=== PATIENT | male | born 1945 | race Caucasian/White ===

== ENCOUNTER 2019-09-29 10:15 | Observation (INO) | payer MEDICARE ==
[2019-09-29] MEDS ORDERED: NORMAL SALINE 1000 ML 1,000 ML IV ONE (10:34)
--- NOTE | 2019-09-29 10:40 | ER Document Report ---
ED General - General Chief Complaint: Breathing Difficulty Stated Complaint: BREATHING DIFFICULTY Time Seen by Provider: 09/29/19 10:22 Notes: 73-year-old male presents with "fluttering of heart" since 6 PM last night. Patient states his blood pressure was elevated and he was in A. fib. Patient had associated dyspnea. Patient was found to be in A. fib with RVR between 130- 160 with EMS and was given Cardizem 24 mg which decreased which the rate and patient was in the 90s to 110s. Patient is currently mildly hypotensive 95/70. Patient's heart rate currently in the 50s to 60s. Patient states he is feeling a "lot better." Only other complaint is cough which is ongoing for several weeks that patient states is improving. Patient has a history of A. fib and is currently on metoprolol for same, patient is anticoagulated with warfarin. Patient states his INR was checked proximally 3 weeks ago and was "fine." Patient's business services representative is Dr. Felix ([phone]). Pt's PCP is Rani Guy PA-C ([phone]). Patient denies any fever, chills, chest pain, abdominal pain, nausea, vomiting. - Related Data Allergies/Adverse Reactions: avocado Allergy (Verified 09/29/19 10:42) Past Medical History - Social History Smoking Status: Unknown if Ever Smoked Family History: None Review of Systems - Review of Systems Notes: Constitutional: Negative for fever. HENT: Negative for sore throat. Eyes: Negative for visual changes. Cardiovascular: Positive for heart fluttering. Negative for chest pain. Respiratory: Positive for shortness of breath. Gastrointestinal: Negative for abdominal pain, vomiting or diarrhea. Genitourinary: Negative for dysuria. Musculoskeletal: Negative for back pain. Skin: Negative for rash. Neurological: Negative for headaches, weakness or numbness. 10 point ROS negative except as marked above and in HPI. Physical Exam - Vital signs Vitals: Pulse Ox 97 09/29/19 10:18 - Notes Notes: GENERAL: Well-appearing, well-nourished and in no acute distress. HEAD: Atraumatic, normocephalic. EYES: Extraocular movements intact, sclera anicteric, conjunctiva are normal. NECK: Normal range of motion, supple without lymphadenopathy or JVD. LUNGS: Breath sounds clear to auscultation bilaterally and equal. No wheezes rales or rhonchi. HEART: Irregular rate and rhythm without murmurs, rubs or gallops. ABDOMEN: Soft, nontender. No guarding, no rebound. No masses appreciated. EXTREMITIES: Normal range of motion, no pitting or edema. No clubbing or cyanosis. NEUROLOGICAL: Cranial nerves II through XII grossly intact. Normal speech, normal gait. PSYCH: Normal mood, normal affect. SKIN: Warm, Dry, normal turgor, no rashes or lesions noted. Course - Re-evaluation Re-evalutation: 09/29/19 73-year-old male presents with dyspnea and A. fib with RVR. Patient was given Cardizem 24 mg IV by EMS which decreased patient's heart rate from 130-160 down to 90-110. Cardiac work-up initiated. Patient was hypotensive at 95/70 so 1 L bolus ordered. EKG shows A. fib at a rate of 59. 09/29/19 12:[address] Ryan. Pt to be admitted. 09/29/19 12:36 Spoke to Theodore Greenwood PA-C who accepted pt for admission. ANDRÉS Greenwood to come down to assess pt. - Vital Signs Vital signs: Temp Pulse Resp BP Pulse Ox 98.3 F 19 126/93 H 97 09/29/19 10:20 09/29/19 12:46 09/29/19 12:46 09/29/19 12:46 - Laboratory Result Diagrams: 09/29/19 10:28 09/29/19 10:28 Laboratory results interpreted by me: 09/29/19 09/29/19 09/29/19 10:28 10:28 10:28 RDW 14.1 H Plt Count 109 L PT 28.6 H APTT 38.3 H Glucose 175 H Discharge - Discharge Clinical Impression: Atrial fibrillation with RVR, Dyspnea Condition: Stable Disposition: ADMITTED INPATIENT Admitting Provider: Jennifer (Hospitalist) - Theodore Greenwood PA-C Unit Admitted: Telemetry
[2019-09-29 10:51] LABS: INTERNATIONAL RATION (INR) 2.63; PROTHROMBIN TIME 28.6 SEC (11.4-15.4)
[2019-09-29 10:52] LABS: PARTIAL THROMBOPLASTIN TIME 38.3 SEC (23.5-35.8)
[2019-09-29 10:57] LABS: ABSOLUTE BASOPHILS # (AUTO) 0.1 10^3/uL (0.0-0.2); ABSOLUTE EOSINOPHILS # (AUTO) 0.2 10^3/uL (0.0-0.6); ABSOLUTE LYMPHOCYTES (AUTO) 1.3 10^3/uL (0.5-4.7); ABSOLUTE MONOCYTES (AUTO) 0.7 10^3/uL (0.1-1.4); ABSOLUTE NEUT (AUTO) 4.4 10^3/uL (1.7-8.2); EOSINOPHILS % (AUTO) 2.8 % (0-6); HEMATOCRIT 47.8 % (37.9-51.0); HEMOGLOBIN 16.4 g/dL (13.5-17.0); LYMPHOCYTES % (AUTO) 19.7 % (13-45); MEAN CORPUSCULAR HEMOGLOBIN 32.2 pg (27.0-33.4); MEAN CORPUSCULAR HGB CONC 34.2 g/dL (32.0-36.0); MEAN CORPUSCULAR VOLUME 94 fl (80-97); MONOCYTES % (AUTO) 10.7 % (3-13); PLATELET COUNT 109 10^3/uL (150-450); RED BLOOD COUNT 5.08 10^6/uL (4.35-5.55); RED CELL DISTRIBUTION WIDTH 14.1 % (11.5-14.0); SEGMENTED NEUTROPHILS % (AUTO) 65.8 % (42-78); TOTAL CELLS COUNTED % (AUTO) 100 %; WHITE BLOOD COUNT 6.7 10^3/uL (4.0-10.5)
[2019-09-29 11:04] LABS: ALKALINE PHOSPHATASE 58 U/L (38-126); ANION GAP 11 (5-19); ASPARTATE AMINO TRANSFERASE 23 U/L (17-59); BILIRUBIN,DIRECT 0.1 mg/dL (0.0-0.4); BILIRUBIN,TOTAL 0.7 mg/dL (0.2-1.3); BLOOD UREA NITROGEN 15 mg/dL (7-20); CALCIUM 9.5 mg/dL (8.4-10.2); CARBON DIOXIDE 23 mmol/L (22-30); CHLORIDE 106 mmol/L (98-107); CREATINE KINASE 98 U/L (55-170); GLUCOSE 175 mg/dL (75-110); POTASSIUM 4.2 mmol/L (3.6-5.0); TOTAL PROTEIN 7.2 g/dL (6.3-8.2)
--- NOTE | 2019-09-29 11:15 | EKG REPORT ---
SEVERITY:- ABNORMAL ECG - ATRIAL FIBRILLATION, V-RATE 43-66 LEFT ANTERIOR FASCICULAR BLOCK LEFT VENTRICULAR HYPERTROPHY NONSPECIFIC T ABNORMALITIES, INFERIOR LEADS : Confirmed by: Kiera Hunter MD 29-Sep-2019 11:13:50
[2019-09-29 11:16] LABS: CREATINE KINASE MB 1.54 ng/mL (<4.55); TROPONIN I 0.024 ng/mL
--- NOTE | 2019-09-29 11:17 | RADIOLOGY REPORT (SQ) ---
EXAM DESCRIPTION: CHEST SINGLE VIEW COMPLETED DATE/TIME: 09/29/2019 11:07 am REASON FOR STUDY: chest pain COMPARISON: None. EXAM PARAMETERS: NUMBER OF VIEWS: One view. TECHNIQUE: Single frontal radiographic view of the chest acquired. RADIATION DOSE: NA LIMITATIONS: None. FINDINGS: LUNGS AND PLEURA: No opacities, masses or pneumothorax. No pleural effusion. MEDIASTINUM AND HILAR STRUCTURES: No masses. Contour normal. HEART AND VASCULAR STRUCTURES: Heart normal in size. Normal vasculature. BONES: No acute findings. HARDWARE: None in the chest. OTHER: No other significant finding. IMPRESSION: NO ACUTE RADIOGRAPHIC FINDING IN THE CHEST. TECHNICAL DOCUMENTATION: JOB ID: [id number] [employer]- All Rights Reserved Reading location - IP/workstation name: [email or web address]
[2019-09-29] MEDS ORDERED: ZOLPIDEM TARTRATE 5 MG TABLET PO PRN (13:14)
[2019-09-29] MEDS ORDERED: ACETAMINOPHEN 325 MG TABLET PO PRN (13:14)
[2019-09-29] MEDS ORDERED: MAGNESIUM HYDROXIDE SUSP 30 ML UDCUP PO PRN (13:14)
[2019-09-29] MEDS ORDERED: ONDANSETRON 4 MG TAB.RAPDIS PO PRN (13:14)
[2019-09-29] MEDS ORDERED: ONDANSETRON HCL INJ/PF 4 MG/2 ML SDV IV PRN (13:14)
[2019-09-29] MEDS ORDERED: HYDROCODONE/ACETAMINOPHEN 5-325 MG TABLET PO PRN (13:34)
--- NOTE | 2019-09-29 13:44 | PDOC H&P ---
History of Present Illness Admission Date/PCP: 09/29/2019 History of Present Illness: INÉS GILMAN is a 73 year old male who last night started getting chest palpitations and hypertension. Patient actually had his first episode of A. fib with RVR while living in [place] in April 2017. Patient states that last night and early this morning this is what it felt like. Patient complained mostly of shortness of breath. Patient came to the hospital because he thought he might be in atrial fib again. Last night his blood pressure was 170/100 this morning he was actually hypotensive at 90/60 patient states his normal pressures about 140/80. When EMS got to him this morning his heart rate was around 150 and he was given Cardizem bolus, 24 mg. She is heart rate is been in the 60s now since that bolus of Cardizem. In April 2017 patient underwent a procedure for his atrial fib, sounds to be some form of ablation.. Patient's only other medical problem appears to be BPH and hypertension. Patient is currently stable and will come into the hospital in observation status overnight to be monitored. Patient is currently taking Coumadin 2 mg at night and his INR is around 2.6. Patient's first troponin is normal. Patient will have 2 other troponins 6 hours apart. Past Medical History Cardiac Medical History: Reports: Atrial Fibrillation, Hyperlipidema, Hypertension Past Surgical History Past Surgical History: Reports: Cholecystectomy, Orthopedic Surgery - R arm surgery Social History Smoking Status: Unknown if Ever Smoked - Advance Directive Resuscitation Status: Full Code Family History Family History: None Parental Family History Reviewed: No Children Family History Reviewed: No Sibling(s) Family History Reviewed.: No Medication/Allergy Home Medications: Calcium Carbonate [Os-Chandler 500 mg Tablet (Oyster-Shell)] 500 mg PO QHS 09/29/19 Cholecalciferol (Vitamin D3) [Vitamin D3 1000 Unit Tablet] 1,000 unit PO QHS 09/29/19 Hydrocodone/Acetaminophen [[place] 5-325 Tablet] 1 each PO Q8HP PRN 09/29/19 Latanoprost [Xalatan 0.005% Oph Soln 2.5 ml] 1 drop OU QHS 09/29/19 Losartan Potassium [Cozaar 25 mg Tablet] 25 mg PO DAILY 09/29/19 Metoprolol Succinate [Toprol XL 100 mg Tablet] 100 mg PO DAILY 09/29/19 Multivitamin [Tab-A-Chintan (Multiple Vitamin) Tablet] 1 tab PO QHS 09/29/19 Tamsulosin HCl [Flomax 0.4 mg Cap.sr] 0.8 mg PO QHS 09/29/19 Timolol Maleate [Timoptic 0.25% Oph Soln 5 ml] 1 drop OS BID 09/29/19 Warfarin Sodium [Coumadin 2 mg Tablet] mg PO 09/29/19 Allergies/Adverse Reactions: avocado Allergy (Verified 09/29/19 10:42) Review of Systems Constitutional: ABSENT: chills, fever(s), headache(s), weight gain, weight loss Cardiovascular: PRESENT: palpitations Respiratory: PRESENT: dyspnea Neurological: ABSENT: abnormal gait, abnormal speech, confusion, dizziness, focal weakness, syncope Psychiatric: ABSENT: anxiety, depression, homidical ideation, suicidal ideation Physical Exam Vital Signs: Temp Pulse Resp BP Pulse Ox 98.3 F 19 126/93 H 97 09/29/19 10:20 09/29/19 12:46 09/29/19 12:46 09/29/19 12:46 Intake & Output 09/28/19 09/29/19 09/30/19 06:59 06:59 06:59 Intake Total 1000 Balance 1000 Weight 94.2 kg General appearance: PRESENT: no acute distress, other - Patient states he feels "1000 times better", since EMS gave him the Cardizem. Patient never really had any chest pain. Respiratory exam: PRESENT: clear to auscultation saroj. ABSENT: rales, rhonchi, wheezes Cardiovascular exam: PRESENT: RRR. ABSENT: diastolic murmur, rubs, systolic murmur Neurological exam: PRESENT: alert, awake, oriented to person, oriented to place, oriented to time, oriented to situation, CN II-XII grossly intact. ABSENT: motor sensory deficit Psychiatric exam: PRESENT: appropriate affect, normal mood. ABSENT: homicidal ideation, suicidal ideation Results Laboratory Results: 09/29/19 10:28 09/29/19 10:28 09/29/19 09/29/19 10:28 10:28 WBC 6.7 RBC 5.08 Hgb 16.4 Hct 47.8 MCV 94 MCH 32.2 MCHC 34.2 RDW 14.1 H Plt Count 109 L Seg Neutrophils % 65.8 Sodium 139.9 Potassium 4.2 Chloride 106 Carbon Dioxide 23 Anion Gap 11 BUN 15 Creatinine 0.86 Est GFR ( Amer) > 60 Glucose 175 H Calcium 9.5 Total Bilirubin 0.7 AST 23 Alkaline Phosphatase 58 Total Protein 7.2 Albumin 4.0 09/29/19 09/29/19 10:28 10:28 Creatine Kinase 98 CK-MB (CK-2) 1.54 Troponin I 0.024 Impressions: Chest X-Ray 09/29/19 10:17 IMPRESSION: NO ACUTE RADIOGRAPHIC FINDING IN THE CHEST. Assessment and Plan - Diagnosis (1) Hypertension Is this a current diagnosis for this admission?: Yes (2) On anticoagulant therapy Is this a current diagnosis for this admission?: Yes (3) Atrial fibrillation with RVR Is this a current diagnosis for this admission?: Yes (4) Dyspnea Is this a current diagnosis for this admission?: Yes - Plan Summary Summary: 09/29/2019 Patient will be admitted to telemetry. No stress test or echo has been ordered. Can be done as an outpatient and the patient agrees with this plan. Patient does have a local repeat chief who we will call tomorrow If things go well patient will be discharged in the morning. I will restart patient's home medications. Patient is medically stable - Time Time Spent with patient: 35 or more minutes
[2019-09-29 13:57] LABS: CREATINE KINASE MB 1.34 ng/mL (<4.55)
[2019-09-29] MEDS: METOPROLOL SUCCINATE 50 MG TAB.SR.24H PO SCH (14:00)
[2019-09-29 14:01] LABS: TROPONIN I 0.019 ng/mL
[2019-09-29] MEDS: TIMOLOL MALEATE 0.25% OPH SOLN 5 ML OS SCH (17:21)
[2019-09-29] MEDS ORDERED: LATANOPROST 0.005% OPH SOLN 2.5 ML OU SCH (22:00)
[2019-09-29] MEDS ORDERED: LOSARTAN POTASSIUM 25 MG TABLET PO SCH (22:00)
[2019-09-29] MEDS: FAMOTIDINE 20 MG TABLET PO SCH (22:15)
[2019-09-30 00:32] LABS: CREATINE KINASE MB 0.87 ng/mL (<4.55); TROPONIN I 0.012 ng/mL
[2019-09-30 03:53] LABS: CREATINE KINASE MB 0.75 ng/mL (<4.55)
[2019-09-30 04:04] LABS: TROPONIN I < 0.012 ng/mL
[2019-09-30 05:55] LABS: APPEARANCE,URINE CLEAR; BILIRUBIN,URINE NEGATIVE (NEGATIVE); COLOR,URINE YELLOW; GLUCOSE, URINE NEGATIVE (NEGATIVE); KETONES,URINE NEGATIVE (NEGATIVE); LEUKOCYTE ESTERASE,URINE NEGATIVE (NEGATIVE); NITRITE,URINE NEGATIVE (NEGATIVE); PROTEIN,URINE NEGATIVE (NEGATIVE); URINE SPECIFIC GRAVITY 1.014; UROBILINOGEN,URINE NEGATIVE mg/dL (<2.0)
[2019-09-30 07:03] LABS: INTERNATIONAL RATION (INR) 2.58; PROTHROMBIN TIME 28.2 SEC (11.4-15.4)
[2019-09-30 07:15] LABS: CHOLESTEROL 182.11 mg/dL (0-200); TRIGLYCERIDES 92 mg/dL (<150)
[2019-09-30 07:26] LABS: DIRECT LDL 113 mg/dL (<100)
[2019-09-30] MEDS: METOPROLOL SUCCINATE 50 MG TAB.SR.24H PO SCH (07:39)
--- NOTE | 2019-09-30 08:40 | EKG REPORT ---
SEVERITY:- ABNORMAL ECG - ATRIAL FIBRILLATION VENTRICULAR PREMATURE COMPLEX LEFT ANTERIOR FASCICULAR BLOCK PROBABLE POSTERIOR INFARCT : Confirmed by: Mike Herrera MD 30-Sep-2019 08:39:34
[2019-09-30] MEDS: TIMOLOL MALEATE 0.25% OPH SOLN 5 ML OS SCH (09:44)
[2019-09-30] MEDS: FAMOTIDINE 20 MG TABLET PO SCH (09:44)
[2019-09-30] MEDS ORDERED: DOCUSATE SODIUM 100 MG CAPSULE PO SCH (10:00)
[2019-09-30 10:35] VITALS: BP 117/81
--- NOTE | 2019-09-30 18:49 | PDOC DISCHARGE SUMMARY ---
Impression - Admit/DC Date/PCP Admission Date/Primary Care Provider: 09/29/19 13:21 Discharge Date: 09/30/19 - Discharge Diagnosis (1) Hypertension Is this a current diagnosis for this admission?: Yes (2) On anticoagulant therapy Is this a current diagnosis for this admission?: Yes (3) Atrial fibrillation with RVR Is this a current diagnosis for this admission?: Yes (4) Dyspnea Is this a current diagnosis for this admission?: Yes (5) Chest pain Is this a current diagnosis for this admission?: Yes - Assessment Summary: 09/29/2019 Patient will be admitted to telemetry. No stress test or echo has been ordered. Can be done as an outpatient and the patient agrees with this plan. Patient does have a local director of global talent who we will call tomorrow If things go well patient will be discharged in the morning. I will restart patient's home medications. Patient is medically stable 09/30/2019 Since serial cardiac enzymes were normal. Patient has had no chest pain since he was seen in the ER even prior to the ER actually. New medications were written. He is to follow-up with his director of global talent by the end of the week. Patient is still in atrial fib but at a normal rate. Patient denies shortness of breath. Patient agrees with being discharged home today to be worked up as an outpatient - Additional Information Resuscitation Status: Full Code Discharge Diet: Cardiac Discharge Activity: Balance Activity w/Rest Referrals: JAMIL DAVIS PA-C [NO LOCAL MD] - 10/07/19 11:00 am Home Medications: Calcium Carbonate [Os-Chandler 500 mg Tablet (Oyster-Shell)] 500 mg PO QHS 09/29/19 Cholecalciferol (Vitamin D3) [Vitamin D3 1000 Unit Tablet] 1,000 unit PO QHS 09/29/19 Hydrocodone/Acetaminophen [[place] 5-325 Tablet] 1 each PO Q8HP PRN 09/29/19 Latanoprost [Xalatan 0.005% Oph Soln 2.5 ml] 1 drop OU QHS 09/29/19 Losartan Potassium [Cozaar 25 mg Tablet] 25 mg PO QHS 09/29/19 Metoprolol Succinate [Toprol XL 100 mg Tablet] 100 mg PO DAILY 09/29/19 Multivitamin [Tab-A-Chintan (Multiple Vitamin) Tablet] 1 tab PO QHS 09/29/19 Tamsulosin HCl [Flomax 0.4 mg Cap.sr] 0.8 mg PO QHS 09/29/19 Timolol Maleate [Timoptic 0.25% Oph Soln 5 ml] 1 drop OS BID 09/29/19 Warfarin Sodium [Coumadin 2 mg Tablet] 4 mg PO QHS 09/29/19 History of Present Illiness History of Present Illness: INÉS GILMAN is a 73 year old male who last night started getting chest palpitations and hypertension. Patient actually had his first episode of A. fib with RVR while living in [place] in April 2017. Patient states that last night and early this morning this is what it felt like. Patient complained mostly of shortness of breath. Patient came to the hospital because he thought he might be in atrial fib again. Last night his blood pressure was 170/100 this morning he was actually hypotensive at 90/60 patient states his normal pressures about 140/80. When EMS got to him this morning his heart rate was around 150 and he was given Cardizem bolus, 24 mg. She is heart rate is been in the 60s now since that bolus of Cardizem. In April 2017 patient underwent a procedure for his atrial fib, sounds to be some form of ablation.. Patient's only other medical problem appears to be BPH and hypertension. Patient is currently stable and will come into the hospital in observation status overnight to be monitored. Patient is currently taking Coumadin 2 mg at night and his INR is around 2.6. Patient's first troponin is normal. Patient will have 2 other troponins 6 hours apart. Physical Exam Vital Signs: Temp Pulse Resp BP Pulse Ox 97.9 F 134 H 18 117/81 97 09/30/19 10:32 09/30/19 10:32 09/30/19 10:32 09/30/19 10:32 09/30/19 10:32 Intake & Output 09/29/19 09/30/19 10/01/19 06:59 06:59 06:59 Intake Total 1560 Output Total 600 Balance 960 Weight 93.2 kg Results Laboratory Results: WBC 6.7 10^3/uL (4.0-10.5) 09/29/19 10:28 RBC 5.08 10^6/uL (4.35-5.55) 09/29/19 10:28 Hgb 16.4 g/dL (13.5-17.0) 09/29/19 10:28 Hct 47.8 % (37.9-51.0) 09/29/19 10:28 MCV 94 fl (80-97) 09/29/19 10:28 MCH 32.2 pg (27.0-33.4) 09/29/19 10:28 MCHC 34.2 g/dL (32.0-36.0) 09/29/19 10:28 RDW 14.1 % (11.5-14.0) H 09/29/19 10:28 Plt Count 109 10^3/uL (150-450) L 09/29/19 10:28 Lymph % (Auto) 19.7 % (13-45) 09/29/19 10:28 [place] % (Auto) 10.7 % (3-13) 09/29/19 10:28 Eos % (Auto) 2.8 % (0-6) 09/29/19 10:28 Baso % (Auto) 1.0 % (0-2) 09/29/19 10:28 Absolute Neuts (auto) 4.4 10^3/uL (1.7-8.2) 09/29/19 10:28 Absolute Lymphs (auto) 1.3 10^3/uL (0.5-4.7) 09/29/19 10:28 Absolute Monos (auto) 0.7 10^3/uL (0.1-1.4) 09/29/19 10:28 Absolute Eos (auto) 0.2 10^3/uL (0.0-0.6) 09/29/19 10:28 Absolute Basos (auto) 0.1 10^3/uL (0.0-0.2) 09/29/19 10:28 Seg Neutrophils % 65.8 % (42-78) 09/29/19 10:28 PT 28.2 SEC (11.4-15.4) H 09/30/19 06:29 INR 2.58 09/30/19 06:29 APTT 36.0 SEC (23.5-35.8) H 09/30/19 06:29 Sodium 139.9 mmol/L (137-145) 09/29/19 10:28 Potassium 4.2 mmol/L (3.6-5.0) 09/29/19 10:28 Chloride 106 mmol/L (98-107) 09/29/19 10:28 Carbon Dioxide 23 mmol/L (22-30) 09/29/19 10:28 Anion Gap 11 (5-19) 09/29/19 10:28 BUN 15 mg/dL (7-20) 09/29/19 10:28 Creatinine 0.86 mg/dL (0.52-1.25) 09/29/19 10:28 Est GFR ( Amer) > 60 (>60) 09/29/19 10:28 Est GFR (MDRD) Non-Af > 60 (>60) 09/29/19 10:28 Glucose 175 mg/dL (75-110) H 09/29/19 10:28 Calcium 9.5 mg/dL (8.4-10.2) 09/29/19 10:28 Magnesium 2.5 mg/dL (1.6-2.3) H 09/30/19 06:29 Total Bilirubin 0.7 mg/dL (0.2-1.3) 09/29/19 10:28 Direct Bilirubin 0.1 mg/dL (0.0-0.4) 09/29/19 10:28 Neonat Total Bilirubin Not Reportable 09/29/19 10:28 Neonat Direct Bilirubin Not Reportable 09/29/19 10:28 Neonat Indirect Bili Not Reportable 09/29/19 10:28 AST 23 U/L (17-59) 09/29/19 10:28 ALT 19 U/L (<50) 09/29/19 10:28 Alkaline Phosphatase 58 U/L (38-126) 09/29/19 10:28 Creatine Kinase 98 U/L (55-170) 09/29/19 10:28 CK-MB (CK-2) 0.75 ng/mL (<4.55) 09/30/19 01:33 Troponin I < 0.012 ng/mL 09/30/19 01:33 Total Protein 7.2 g/dL (6.3-8.2) 09/29/19 10:28 Albumin 4.0 g/dL (3.5-5.0) 09/29/19 10:28 Triglycerides 92 mg/dL (<150) 09/30/19 06:29 Cholesterol 182.11 mg/dL (0-200) 09/30/19 06:29 LDL Cholesterol Direct 113 mg/dL (<100) H 09/30/19 06:29 VLDL Cholesterol 18.0 mg/dL (10-31) 09/30/19 06:29 HDL Cholesterol 41 mg/dL (>40) 09/30/19 06:29 TSH 1.33 uIU/mL (0.47-4.68) 09/29/19 13:17 Urine Color YELLOW 09/30/19 05:24 Urine Appearance CLEAR 09/30/19 05:24 Urine pH 6.0 (5.0-9.0) 09/30/19 05:24 Ur Specific [place] 1.014 09/30/19 05:24 Urine Protein NEGATIVE mg/dL (NEGATIVE) 09/30/19 05:24 Urine Glucose (UA) NEGATIVE mg/dL (NEGATIVE) 09/30/19 05:24 Urine Ketones NEGATIVE mg/dL (NEGATIVE) 09/30/19 05:24 Urine Blood NEGATIVE (NEGATIVE) 09/30/19 05:24 Urine Nitrite NEGATIVE (NEGATIVE) 09/30/19 05:24 Urine Bilirubin NEGATIVE (NEGATIVE) 09/30/19 05:24 Urine Urobilinogen NEGATIVE mg/dL (<2.0) 09/30/19 05:24 Ur Leukocyte Esterase NEGATIVE (NEGATIVE) 09/30/19 05:24 Urine WBC (Auto) 2 /HPF 09/30/19 05:24 Urine RBC (Auto) 2 /HPF 09/30/19 05:24 Urine Mucus (Auto) RARE /LPF 09/30/19 05:24 Urine Ascorbic Acid 40 (NEGATIVE) H 09/30/19 05:24 09/29/19 09/29/19 09/29/19 10:28 13:17 18:55 CK-MB (CK-2) 1.54 1.34 0.87 Troponin I 0.024 0.019 0.012 09/30/19 01:33 CK-MB (CK-2) 0.75 Troponin I < 0.012 Impressions: Chest X-Ray 09/29/19 10:17 IMPRESSION: NO ACUTE RADIOGRAPHIC FINDING IN THE CHEST. Stroke Is this a Stroke Patient?: No Acute Heart Failure - Is this a Heart Failure Patient?: No
== END 2019-09-30 12:06 | disposition home or self-care (01) ==
LOC: ER 10:15 → INTOOBSV 13:21 → EH 13:21 → 3S 14:47
PROVIDERS: ADMIT Internal Medicine; ATTEND Internal Medicine
DX: I48.91 Unspecified atrial fibrillation (principal); R06.00 Dyspnea, unspecified; I10 Essential (primary) hypertension; R07.9 Chest pain, unspecified; I95.9 Hypotension, unspecified; N40.0 Benign prostatic hyperplasia without lower urinary tract symptoms; R05 Cough; Z79.01 Long term (current) use of anticoagulants; Z79.899 Other long term (current) drug therapy; Z90.49 Acquired absence of other specified parts of digestive tract
CPT/HCPCS: 93005 ×2; 99285; 96360; 36415 ×2; 82553 ×2; 82550; 83735; 84443; 85025; 85610 ×2; 85730 ×2; 80053; 81001; 84484 ×2; 80061; 71045; 93010 ×2; G0378 ×3; A9270 ×7; J7030; J3490